=== PATIENT | female | born 1975 | race Two or more races ===

== ENCOUNTER 2024-03-26 17:10 | Emergency (ER) | payer BC, OTHER ==
[~2024-03-26] VITALS: Ht 157.5 cm; Wt 63.5 kg
[2024-03-26 18:12] VITALS: BP 132/82; PULSE 92; RESP 16; TEMP 98.4; O2SAT 97
[2024-03-26] MEDS: LIDOCAINE 1% HCL (LOCAL ANESTH.) INJ 20ML MDV ID ONE (18:45)
[2024-03-26] MEDS: TETANUS-DIPTH-ACEL PERTUSSIS 0.5ML SYR Tdap IM ONE (18:53)
[2024-03-26] MEDS ORDERED: AUG875T PO (19:24)
== END 2024-03-26 19:21 | disposition home or self-care (01) ==
LOC: ER 17:10
DX: S51.812A Laceration without foreign body of left forearm, initial encounter (principal); W25.XXXA Contact with sharp glass, initial encounter; Y93.89 Activity, other specified; Y92.89 Other specified places as the place of occurrence of the external cause; Y99.8 Other external cause status
CPT/HCPCS: 12001; 90471; 90715; J2001